=== PATIENT | female | born 1955 | race Caucasian/White ===

== ENCOUNTER 2017-07-15 12:24 | Emergency (ER) | payer OTHER ==
[~2017-07-15] VITALS: Ht 162.6 cm; Wt 90.7 kg
[~2017-07-15 12:24] MED LIST: ACETAMINOPHEN-1 EAC1 PO; APAP W/CODEINE1 TA2 PO; ATIVAN0.5 M1 PO; BUSPAR 5 MG TABL5 M1 PO; BUSPIRONE PO; BUTALB-ACETAMI1 EACH PO; CIPROFLOXACIN500 M1 PO; CIPROFLOXACIN500 M3 PO; CYMBALTA60 MG PO; DESYREL50 MG PO; DICLOFENAC SODI75 M1 PO; FIORICET 50-321 EACH PO; FIORINAL CAPSUL1 CA1 PO; FLEXERIL PO; GEMFIBROZIL 60600 MG PO; IBUPROFEN 800800 M1 PO; LEVOTHYROXINE0.05 MG PO; LUNESTA3 MG PO; MECLIZINE HCL25 M1 PO; NEURONTIN 300300 M1 PO; PHENERGAN 25 MG25 M1 PO; PROAIR HFA8.5 GM INH; REMERON15 M1 PO; REMERON15 MG PO; ROBAXIN 750 MG750 M1 PO; TOPROL XL50 MG PO; XANAX 0.5 MG0.5 M1 PO; ZOCOR40 MG PO
[2017-07-15 13:31] LABS: HEMATOCRIT 39.8 % (37.0-47.0); HEMOGLOBIN 14.1 gm/dL (12.0-15.0); MCH 31.9 pg (26.0-34.0); MCHC 35.4 g/dL (28.0-37.0); MCV 90.2 fL (80.0-100.0); RBC 4.42 mil/uL (4.20-5.00); RDW 14.4 % (10.5-14.5); WBC 9.6 thou/uL (4.0-11.0)
[2017-07-15 13:38] LABS: CALCIUM 9.8 mg/dL (8.5-10.1); CREATININE 1.3 mg/dL (0.6-1.0); POTASSIUM 3.6 mmol/L (3.5-5.1)
== END 2017-07-15 14:05 | disposition home or self-care (01) ==
LOC: ER 12:24
PROVIDERS: Emergency Medicine
DX: R06.02 Shortness of breath (principal); F41.9 Anxiety disorder, unspecified; I10 Essential (primary) hypertension; E07.9 Disorder of thyroid, unspecified